=== PATIENT | female | born 1940 ===

== ENCOUNTER 2017-04-18 19:59 | Emergency (ER) | payer MEDICARE, MEDICAID ==
--- NOTE | 2017-04-18 20:15 | ED PDOC ---
Arrival/HPI <Dayton Cantor DO - Last Filed: 04/18/17 20:55> - General Historian: Patient, Family - History of Present Illness Time/Duration: Prior to Arrival Symptom Onset: Sudden Quality: Aching Severity Level: 7 <Jey Tompkins - Last Filed: 04/18/17 22:10> - General Chief Complaint: Trauma Time Seen by Provider: 04/18/17 20:07 - History of Present Illness Narrative History of Present Illness (Text): 76 F with PMH of HLD and HTN presented to ED with complaint of mechanical fall and chest/rib pain. Patient states that she was sitting playing monopoly with family then stood up. As she began to walk, her foot got caught on a table and stool then she proceeded to fall face first , hitting her face, chest, and side off the ground. Denies frequent falls and LOC. Shes rates the pain 7/10 in severity. She describes the pain as constant and aching located on anterior chest, right ribs and forehead. Movement and palpation exacerbates pain. She did not take anything for pain. Chest pain is reproducible on palpation and is noncardiac in nature. (Jey Tompkins) Past Medical History - Provider Review Nursing Documentation Reviewed: Yes - Travel History Have you recently traveled outside [place] w/in the past 3 mons?: No - Infectious Disease Hx of Infectious Diseases: None - Cardiac Hx Hypertension: Yes - Pulmonary Hx Chronic Obstructive Pulmonary Disease (COPD): Yes - Psychiatric Hx Anxiety: Yes Hx Substance Use: No - Surgical History Other/Comment: right knee sx repair - Anesthesia Hx Anesthesia: Yes Hx Anesthesia Reactions: No Hx Malignant Hyperthermia: No <Jey Tompkins - Last Filed: 04/18/17 22:10> Family/Social History - Physician Review Nursing Documentation Reviewed: Yes Family/Social History: Hypertension, CAD/AR Smoking Status: Never Smoked Hx Alcohol Use: No Hx Substance Use: No <Jey Tompkins - Last Filed: 04/18/17 22:10> Allergies/Home Meds <Dayton Cantor DO - Last Filed: 04/18/17 20:55> <Jey Tompkins - Last Filed: 04/18/17 22:10> Allergies/Adverse Reactions: Allergies No Known Allergies Allergy (Verified 04/18/17 20:07) Home Medications: Home Meds Medication Instructions Recorded Confirmed Bp Meds? 1 tab PO DAILY 04/18/17 04/18/17 Review of Systems - Review of Systems Constitutional: absent: Fatigue, Weight Change, Fevers, Night Sweats Eyes: absent: Vision Changes, Photophobia, Eye Pain ENT: absent: Hearing Changes, Tinnitus, Sinus Congestion Respiratory: absent: SOB, Cough, Sputum, Wheezing Cardiovascular: Chest Pain (reproducible by palpation). absent: Palpitations, MEEKS, Orthopnea, Syncope Gastrointestinal: absent: Abdominal Pain, Diarrhea, Nausea, Vomiting Genitourinary Female: absent: Dysuria, Frequency, Hematuria Musculoskeletal: Arthralgias, Myalgias. absent: Back Pain, Neck Pain Skin: Other (forehead abrasion) Neurological: absent: Headache, Dizziness, Focal Weakness, Seizure Endocrine: absent: Diaphoresis, Polyuria, Polydipsia Hemo/Lymphatic: absent: Adenopathy, Easy Bleeding, Easy Bruising Psychiatric: absent: Anxiety, Depression, Suicidal Ideation <Jey Tompkins - Last Filed: 04/18/17 22:10> Physical Exam <Dayton Cantor DO - Last Filed: 04/18/17 20:55> Vital Signs Reviewed: Yes Temperature: Afebrile Blood Pressure: Hypertensive Pulse: Regular Respiratory Rate: Normal Appearance: Positive for: Well-Appearing, Non-Toxic Pain Distress: Moderate Mental Status: Positive for: Alert and Oriented X 3 - Systems Exam Head: Present: Atraumatic, Normocephalic Pupils: Present: PERRL Extroacular Muscles: Present: EOMI Conjunctiva: Present: Normal Ears: Present: Normal Mouth: Present: Moist Mucous Membranes Pharnyx: Present: Normal Nose (External): Present: Atraumatic Nose (Internal): Present: Normal Inspection Neck: Present: Normal Range of Motion, Trachea Midline Respiratory/Chest: Present: Clear to Auscultation, Good Air Exchange, Tender to Palpation (R ribs 3-6, sternum) Cardiovascular: Present: Regular Rate and Rhythm, Normal S1, S2 Abdomen: Present: Normal Bowel Sounds. No: Tenderness, Distention, Rebound, Guarding Back: No: CVA Tenderness Upper Extremity: Present: NORMAL PULSES, Neurovascularly Intact, Capillary Refill < 2s Lower Extremity: Present: NORMAL PULSES, Normal ROM, Neurovascularly Intact, Capillary Refill < 2 s Neurological: Present: GCS=15, CN II-XII Intact, Speech Normal Skin: Present: Warm, Dry, Abrasion (forehead 1 cm) Lymphatic: No: Cervical Adenopathy, Axillary Adenopathy, Inguinal Adenopathy Psychiatric: Present: Alert, Oriented x 3, Normal Insight, Normal Concentration <Jey Tompkins - Last Filed: 04/18/17 22:10> Vital Signs Temp Pulse Resp BP Pulse Ox 04/18/17 20:01 98.7 F 68 19 154/100 H 100 Medical Decision Making <Dayton Cantor DO - Last Filed: 04/18/17 20:55> <Jey Tompkins - Last Filed: 04/18/17 22:10> ED Course and Treatment: EKG done and was sinus bradycardia. Tylenol given for pain. CT head and chest performed and both negative. (Jey Tompkins) - RAD Interpretation Radiology Orders: 04/18/17 20:28 CHEST W/O CONTRAST [CT] Stat 04/18/17 20:29 HEAD W/O CONTRAST [CT] Stat - Medication Orders Current Medication Orders: Discontinued Medications Acetaminophen (Tylenol 325mg Tab) 650 mg PO STAT STA Stop: 04/18/17 20:50 Last Admin: 04/18/17 20:54 Dose: 650 mg - Scribe Statement The provider has reviewed the documentation as recorded by the Scribe <Dayton Cantor DO - Last Filed: 04/18/17 20:55> - PA / WAXED BAG MACHINE OPERATOR / Resident Statement DEANNE has reviewed & agrees with the documentation as recorded. DEANNE has examined the patient and agrees with the treatment plan. <Jey Tompkins - Last Filed: 04/18/17 22:10> - Scribe Statement Sadia Parker Provider Scribe Attestation: All medical record entries made by the Scribe were at my direction and personally dictated by me. I have reviewed the chart and agree that the record accurately reflects my personal performance of the history, physical exam, medical decision making, and the department course for this patient. I have also personally directed, reviewed, and agree with the discharge instructions and disposition. (Dayton Cantor DO) Disposition/Present on Arrival <Dayton Cantor DO - Last Filed: 04/18/17 20:55> - Present on Arrival Any Indicators Present on Arrival: No History of DVT/PE: No History of Uncontrolled Diabetes: No Urinary Catheter: No History of Decub. Ulcer: No History Surgical Site Infection Following: None - Disposition Have Diagnosis and Disposition been Completed?: Yes Disposition Time: 21:55 Patient Plan: Discharge <Jey Tompkins - Last Filed: 04/18/17 22:10> - Disposition Diagnosis: Fall against object Disposition: HOME/ ROUTINE Condition: STABLE Discharge Instructions (ExitCare): Contusion in Adults (ED) Additional Instructions: Follow up with PMD within 2-3 days May take OTC ibuprofen or tylenol for pain Can use ice packs for swelling Please return to ED if symptoms persist or condition worsens Referrals: Liset Redding, [Primary Care Provider] - Follow up with primary
--- NOTE | 2017-04-19 09:24 | CARD ---
APPROVED REPORT EKG Measurement Heart [id number] <Conclusion> Sinus bradycardia Otherwise normal ECG
--- NOTE | 2017-04-19 10:30 | CT ---
PROCEDURE: CT HEAD WITHOUT CONTRAST. HISTORY: mechanical fall COMPARISON: None available. TECHNIQUE: Axial computed tomography images were obtained through the head/brain without intravenous contrast. Radiation dose: Total exam DLP = mcdonald 677.45 mGy-cm. This CT exam was performed using one or more of the following dose reduction techniques: Automated exposure control, adjustment of the mA and/or kV according to patient size, and/or use of iterative reconstruction technique. FINDINGS: HEMORRHAGE: No acute parenchymal, subarachnoid or extra-axial hemorrhage. BRAIN: Moderate diffuse/confluent chronic white matter ischemic changes seen extending peripherally into the deep and subcortical white matter both cerebral hemispheres. Scattered chronic bilateral basal nuclei lacunar type infarcts also felt to be present. Questionable few chronic brainstem lacunar type infarcts. Minor vascular calcifications. VENTRICLES: Moderate generalized volume loss. CALVARIUM: No acute calvarial fractures. PARANASAL SINUSES: Unremarkable as visualized. No significant inflammatory changes. MASTOID AIR CELLS: Unremarkable as visualized. No inflammatory changes. OTHER FINDINGS: Changes of bilateral cataract surgery are present. IMPRESSION: No acute intracranial hemorrhage. Mild chronic white matter and basal nuclei ischemic changes.
--- NOTE | 2017-04-19 10:59 | CT ---
PROCEDURE: CT Chest without contrast HISTORY: mechanical fall COMPARISON: None. TECHNIQUE: Contiguous axial images were obtained through the chest without intravenous contrast enhancement. Sagittal and coronal reconstructions were performed. Radiation dose (DLP): 363.24 mGy-cm. This CT exam was performed using one or more of the following dose reduction techniques: Automated exposure control, adjustment of the mA and/or kV according to patient size, and/or use of iterative reconstruction technique. FINDINGS: LUNGS: No focal consolidation. Minor linear atelectasis and or scarring changes in the of both lung bases, right greater than left as well as the lingular region. MEDIASTINUM: Heart size within range of normal. No significant pericardial effusion. At ascending thoracic aorta measures approximately 3.56 cm and descending thoracic aorta measures approximately 2.59 cm. Pulmonary trunk measures approximately 2.9 cm. The small nonspecific mediastinal lymph nodes are present. Evaluation for hilar adenopathy is limited due to the lack of circulating intravenous contrast material. Central airways are midline and patent. No endoluminal lesions seen. Tiny hiatal hernia. PLEURA: No effusion or pneumothorax. . BONES: Minor multilevel degenerative spondylosis of the thoracic spine. There are no acute compression fractures no retropulsed fragments. Small area of sclerosis along the anterior superior margin of the T11 segment felt to represent degenerative sclerosis. Smaller focus seen along the inferior anterior margin of the T8 segment as well. UPPER ABDOMEN: . Small approximately 7.9 mm calcification the the seen along the anteromedial splenic capsule which appears to be vascular in origin. There are additional vascular calcifications of the splenic artery. . Patient is status post cholecystectomy with metallic clips in the gallbladder fossa. There is tiny calcification along the anterior inferior capsular surface of the right lobe liver which may be secondary to prior exposure to granulomatous disease process. OTHER FINDINGS: None. IMPRESSION: No no acute infiltrate effusion or pneumothorax. No evidence of acute rib fracture or fracture of the thoracic spine. Status post cholecystectomy. Tiny calcifications seen along the anterior inferior capsular surface right lobe liver possibly representing small calcified granuloma. Preliminary report provided by overnight radiology service.
[2017-04-19 12:08] VITALS: BP 148/80; PULSE 62; RESP 16; TEMP 98.7; O2SAT 100
== END 2017-04-18 22:21 | disposition home or self-care (01) ==
LOC: EDBD → ED 19:59
DX: S00.83XA Contusion of other part of head, initial encounter (principal); W01.0XXA Fall on same level from slipping, tripping and stumbling without subsequent striking against object, initial encounter; Y93.89 Activity, other specified; Y92.008 Other place in unspecified non-institutional (private) residence as the place of occurrence of the external cause